=== PATIENT | male | born 1945 | race American Indian/Alaskan Native ===

== ENCOUNTER 2021-08-13 20:32 | Observation (INO) | payer MEDICARE, OTHER ==
--- NOTE | 2021-08-13 21:16 | Emergency Department Report ---
ED General Adult HPI - General Chief complaint: Weakness Stated complaint: GENERAL ILLNESS Time Seen by Provider: 08/13/21 21:06 Source: patient, EMS Mode of arrival: Stretcher Limitations: No Limitations - History of Present Illness Initial comments: Patient is 75 years old male with history of end-stage renal disease on hemodialysis last dialysis was yesterday according to the EMS report. Patient also history of diabetes and CVA. Patient brought to the emergency room via EMS from home after his son called and stated that he feel that he is motor function is not perfect and he stated that he looks weak. EMS stated that patient blood pressure was 90/42 but his son stated that that his usual blood pressure. Upon arrival to the ER patient is awake, alert and oriented x3 in no acute distress. Patient denied any complaint. Patient specifically denied any headache, chest pain, shortness of breath, abdominal pain, nausea or vomiting. No focal weakness numbness or tingling sensation. Stroke scale is 0. - Related Data Allergies Allergy/AdvReac Type Severity Reaction Status Date / Time No Known Allergies Allergy Verified 08/14/21 00:46 ED Review of Systems ROS: Stated complaint: GENERAL ILLNESS Other details as noted in HPI Comment: All other systems reviewed and negative Constitutional: denies: chills, fever Respiratory: denies: cough, shortness of breath, SOB with exertion Cardiovascular: denies: chest pain, palpitations Gastrointestinal: denies: abdominal pain, nausea, vomiting, diarrhea, constipation, hematemesis, melena Musculoskeletal: denies: back pain Neurological: weakness. denies: headache, numbness, paresthesias, confusion, abnormal gait ED Past Medical Hx - Past Medical History Hx CVA: Yes Hx Diabetes: Yes Hx Renal Disease: Yes (HD T, Th, Sat) Hx of Cancer: Yes (prostate, colon) - Surgical History Additional Surgical History: L foot ED Physical Exam - General Limitations: No Limitations General appearance: alert, in no apparent distress - Head Head exam: Present: atraumatic, normocephalic, normal inspection - Eye Eye exam: Present: normal appearance, PERRL - ENT ENT exam: Present: normal exam, normal orophraynx, mucous membranes moist - Neck Neck exam: Present: normal inspection, full ROM. Absent: tenderness, m eningismus, lymphadenopathy, thyromegaly - Respiratory Respiratory exam: Present: normal lung sounds bilaterally - Cardiovascular Cardiovascular Exam: Present: regular rate, normal rhythm, normal heart sounds - GI/Abdominal GI/Abdominal exam: Present: soft, normal bowel sounds. Absent: distended, tenderness, guarding, rebound, rigid, organomegaly, mass, bruit, pulsatile mass, hernia - Extremities Exam Extremities exam: Present: full ROM, pedal edema. Absent: calf tenderness - Back Exam Back exam: Present: normal inspection, full ROM. Absent: CVA tenderness (R), CVA tenderness (L) - Neurological Exam Neurological exam: Present: alert, oriented X3, CN II-XII intact - Psychiatric Psychiatric exam: Present: normal mood - Skin Skin exam: Present: warm, intact, normal color ED Course Vital Signs 08/13/21 08/13/21 08/14/21 21:11 23:00 00:56 Temperature 99.1 F 99.1 F Pulse Rate 99 H 102 H Respiratory 20 20 Rate Blood Pressure 118/80 Blood Pressure 114/45 [Left] O2 Sat by Pulse 100 99 97 Oximetry 08/14/21 08/14/21 08/14/21 01:00 02:01 02:30 Temperature 98.8 F Pulse Rate 106 H Respiratory Rate Blood Pressure Blood Pressure 121/38 [Left] O2 Sat by Pulse 96 100 Oximetry - Consultations Consultation #1: 08/14/21 02:53 I discussed the patient with Dr. Calderon, meat trimmer on-call. He stated that he would follow-up with the patient. ED Medical Decision Making - Lab Data Result diagrams: 08/13/21 21:38 08/13/21 21:38 - EKG Data -: EKG Interpreted by Me EKG shows normal: sinus rhythm - Radiology Data Radiology results: report reviewed - Medical Decision Making Patient is 75 years old male with history of end-stage renal disease on hemodialysis last dialysis was yesterday according to the EMS report. Patient also history of diabetes and CVA. Patient brought to the emergency room via EMS from home after his son called and stated that he feel that he is motor function is not perfect and he stated that he looks weak. EMS stated that patient blood pressure was 90/42 but his son stated that that his usual blood pressure. Upon arrival to the ER patient is awake, alert and oriented x3 in no acute distress. Patient denied any complaint. Patient specifically denied any headache, chest pain, shortness of breath, abdominal pain, nausea or vomiting. No focal weakness numbness or tingling sensation. Stroke scale is 0. Labs reviewed and showed leukocytosis of 16,000. Chest x-ray is negative. CT abdomen and pelvis is unremarkable. CT brain is negative for acute finding. Patient started on Zosyn. Potassium is 5.5. I discussed the patient with Dr. Calderon from [facility]. He advised to admit the patient to [facility] and he will follow up with the patient in the morning. He is able to reviewed the notes from [facility] urgent care today and stated that patient checked in for acute confusion according to the family. I discussed the patient with Dr. Kapadia, he agreed to admit the patient to medical service for further management. Critical Care Time: Yes Critical care time in (mins) excluding proc time.: 30 Critical care attestation.: If time is entered above; I have spent that time in minutes in the direct care of this critically ill patient, excluding procedure time. ED Disposition Clinical Impression: Altered mental status, Leukocytosis, Hyperkalemia, End stage renal disease on dialysis Disposition: 09 ADMITTED INPATIENT Is pt being admited?: Yes Condition: Stable Referrals: YUNIOR GUAN [Other] - 3-5 Days
[2021-08-13 21:52] LABS: Hematocrit 36.6 % (35.5-45.6); Hemoglobin 12.1 gm/dl (11.8-15.2); Mean Corpuscular HGB Conc 33 % (32-34); Mean Corpuscular Volume 108 fl (84-94); Platelet Count 162 K/mm3 (140-440); Red Blood Count 3.38 M/mm3 (3.65-5.03); Red Cell Distribution Width 14.8 % (13.2-15.2)
--- NOTE | 2021-08-13 21:52 | XRay Report ---
CHEST 1 VIEW INDICATION / CLINICAL INFORMATION: SOB. COMPARISON: None available. FINDINGS: SUPPORT DEVICES: None. HEART / MEDIASTINUM: No significant abnormality. LUNGS / PLEURA: No significant pulmonary or pleural abnormality. No pneumothorax. ADDITIONAL FINDINGS: No significant additional findings. IMPRESSION: 1. No acute findings. Signer Name: Destiny Talbert MD Signed: 08/13/2021 9:48 PM Workstation Name: [id number]
[2021-08-13 22:13] LABS: Calcium 9.5 mg/dL (8.4-10.2)
[2021-08-14 00:21] LABS: Anisocytosis 1+; Platelet Estimate Consistent w Auto; Total Cells Counted 100
[2021-08-14] MEDS ORDERED: PIPERACILLIN/TAZOBACTAM 3.375 3.375 GM/50 ML BAG IV ONE (00:45)
[2021-08-14] MEDS ORDERED: LORazepam 2 MG/ML VIAL IV ONE (00:50)
--- NOTE | 2021-08-14 01:01 | Cat Scan Report ---
CT ABDOMEN AND PELVIS WITHOUT CONTRAST INDICATION: ABDOMINAL PAIN. TECHNIQUE: Axial CT images were obtained through the abdomen and pelvis without IV contrast. All CT scans at [facility] are performed using CT dose reduction for ALARA by means of automated exposure control. COMPARISON: None available. FINDINGS: LOWER CHEST: No significant abnormality. LIVER: No significant abnormality. GALLBLADDER: Calcified gallstone BILE DUCTS: No significant abnormality. PANCREAS: No significant abnormality. SPLEEN: No significant abnormality. ADRENALS: No significant abnormality. RIGHT KIDNEY and URETER: Exophytic 7 mm cyst. LEFT KIDNEY and URETER: No significant abnormality. STOMACH and SMALL BOWEL: No significant abnormality. COLON: Right hemicolectomy no significant colonic abnormality APPENDIX: Surgically absent PERITONEUM: No free fluid. No free air. No fluid collection. LYMPH NODES: No significant adenopathy. AORTA and ARTERIES: No significant abnormality. IVC and VEINS: No significant abnormality. URINARY BLADDER: No significant abnormality. REPRODUCTIVE ORGANS: No significant abnormality. ADDITIONAL FINDINGS: None. SKELETAL SYSTEM: Moderate left and severe right hip arthropathy IMPRESSION: 1. Cholelithiasis without CT evidence for cholecystitis. 2. Partial right hemicolectomy Signer Name: Wesley Oh MD Signed: 08/14/2021 12:56 AM Workstation Name: [id number]
[2021-08-14] MEDS ORDERED: SODIUM CHLORIDE 0.9% 500 ML 500 ML IV ONE (02:52)
--- NOTE | 2021-08-14 03:10 | Cat Scan Report ---
CT HEAD WITHOUT CONTRAST INDICATION / CLINICAL INFORMATION: AMS. TECHNIQUE: All CT scans at this location are performed using CT dose reduction for ALARA by means of automated e xposure control. COMPARISON: None available. FINDINGS: HEMORRHAGE: None. EXTRA-AXIAL SPACES: Normal in size and morphology for the patient's age. VENTRICULAR SYSTEM: Normal in size and morphology for the patient's age. CEREBRAL PARENCHYMA: Mild cerebral atrophy and moderate periventricular and deep white matter microan giopathy No significant abnormality. No acute territorial infarct. MIDLINE SHIFT OR HERNIATION: None. CEREBELLUM / BRAINSTEM: No significant abnormality. ORBITS: Normal as visualized. SOFT TISSUES of HEAD: No significant abnormality. CALVARIUM: No significant abnormality. PARANASAL SINUSES / MASTOID AIR CELLS: Normal as visualized. ADDITIONAL FINDINGS: None. IMPRESSION: 1. No acute intracranial abnormality. 2. Cerebral atrophy and moderate microangiopathy Signer Name: Wesley Oh MD Signed: 08/14/2021 3:05 AM Workstation Name: [id number]
[2021-08-14] MEDS ORDERED: ACETAMINOPHEN 325 MG TAB PO PRN (04:28)
[2021-08-14] MEDS ORDERED: ONDANSETRON 4 MG/2 ML INJ IV PRN (04:28)
[2021-08-14] MEDS ORDERED: ALBUTEROL 2.5 MG/3 ML NEBU IH PRN (04:28)
[2021-08-14] MEDS ORDERED: oxyCODONE /ACETAMINOPHEN 5-325MG TAB PO PRN (04:28)
[2021-08-14] MEDS ORDERED: SODIUM CHLORIDE 0.9% 100 ML IV PRN (04:28)
[2021-08-14] MEDS ORDERED: DEXTROSE 50% IN WATER (25GM) 50 ML SYRINGE IV PRN (04:30)
--- NOTE | 2021-08-14 04:36 | History and Physical Report ---
History of Present Illness Date of examination: 08/14/21 Date of admission: 08/14/21 Chief complaint: Weakness History of present illness: 75 years old male with history of CVA, diabetes, end-stage renal disease on hemodialysis last dialysis was yesterday was brought to the emergency room via EMS from home after his son called and stated that he feel that he is motor function is not perfect and he stated that he looks weak. patient blood pressure was 90/42 but his son stated that that his usual blood pressure. Upon arrival to the ER patient is awake, alert and oriented x3 in no acute distress. Patient denied any complaint. Patient specifically denied any headache, chest pain, shortness of breath, abdominal pain, nausea or vomiting. No focal weakness numbness or tingling sensation. Stroke scale is 0. In the emergency room patient WBC 16.4, BUN 52 creatinine 11.0 potassium 5.5 nephrology is consulted for hemodialysis. Chest x-ray is negative. CT abdomen and pelvis is unremarkable. CT brain is negative for acute finding. Patient started on Zosyn. Med rec is not available Past History Past Medical History: diabetes, ESRD, hypertension, stroke Medications and Allergies Allergies Allergy/AdvReac Type Severity Reaction Status Date / Time No Known Allergies Allergy Verified 08/14/21 00:46 Review of Systems All systems: negative Constitutional: fatigue, weakness Exam - Constitutional Vitals: Temp Pulse Resp BP Pulse Ox 98.8 F 106 H 20 121/38 100 08/14/21 02:30 08/14/21 02:30 08/13/21 23:00 08/14/21 02:30 08/14/21 02:01 General appearance: Present: no acute distress, well-nourished - EENT Eyes: Present: PERRL ENT: hearing intact, clear oral mucosa - Neck Neck: Present: supple, normal ROM - Respiratory Respiratory effort: normal Respiratory: bilateral: diminished - Cardiovascular Heart Sounds: Present: S1 & S2. Absent: rub, click - Extremities Extremities: pulses symmetrical Extremity abnormal: edema, black Peripheral Pulses: within normal limits - Abdominal General gastrointestinal: Present: soft, non-tender, non-distended, normal bowel sounds Male genitourinary: Present: normal - Integumentary Integumentary: Present: clear, warm, dry - Musculoskeletal Musculoskeletal: gait normal, strength equal bilaterally - Psychiatric Psychiatric: appropriate mood/affect, intact judgment & insight - Neurologic Neurologic: CNII-XII intact, moves all extremities Results - Labs CBC & Chem 7: 08/13/21 21:38 08/13/21 21:38 Labs: Laboratory Last Values WBC 16.4 K/mm3 (4.5-11.0) H 08/13/21 21:38 RBC 3.38 M/mm3 (3.65-5.03) L 08/13/21 21:38 Hgb 12.1 gm/dl (11.8-15.2) 08/13/21 21:38 Hct 36.6 % (35.5-45.6) 08/13/21 21:38 MCV 108 fl (84-94) H 08/13/21 21:38 MCH 36 pg (28-32) H 08/13/21 21:38 MCHC 33 % (32-34) 08/13/21 21:38 RDW 14.8 % (13.2-15.2) 08/13/21 21:38 Plt Count 162 K/mm3 (140-440) 08/13/21 21:38 Add Manual Diff Complete 08/13/21 21:38 Total Counted 100 08/13/21 21:38 Seg Neutrophils % Peripatologist 08/13/21 21:38 Seg Neuts % (Manual) 95.0 % (40.0-70.0) H 08/13/21 21:38 Lymphocytes % (Manual) 4.0 % (13.4-35.0) L 08/13/21 21:38 Monocytes % (Manual) 1.0 % (0.0-7.3) 08/13/21 21:38 Nucleated RBC % Not Reportable 08/13/21 21:38 Seg Neutrophils # Man 15.6 K/mm3 (1.8-7.7) H 08/13/21 21:38 Band Neutrophils # 0.0 K/mm3 08/13/21 21:38 Lymphocytes # (Manual) 0.7 K/mm3 (1.2-5.4) L 08/13/21 21:38 Abs React Lymphs (Man) 0.0 K/mm3 08/13/21 21:38 Monocytes # (Manual) 0.2 K/mm3 (0.0-0.8) 08/13/21 21:38 Eosinophils # (Manual) 0.0 K/mm3 (0.0-0.4) 08/13/21 21:38 Basophils # (Manual) 0.0 K/mm3 (0.0-0.1) 08/13/21 21:38 Metamyelocytes # 0.0 K/mm3 08/13/21 21:38 Myelocytes # 0.0 K/mm3 08/13/21 21:38 Promyelocytes # 0.0 K/mm3 08/13/21 21:38 Blast Cells # 0.0 K/mm3 08/13/21 21:38 WBC Morphology Not Reportable 08/13/21 21:38 Hypersegmented Neuts Not Reportable 08/13/21 21:38 Hyposegmented Neuts Not Reportable 08/13/21 21:38 Hypogranular Neuts Not Reportable 08/13/21 21:38 Smudge Cells Not Reportable 08/13/21 21:38 Toxic Granulation Not Reportable 08/13/21 21:38 Toxic Vacuolation Not Reportable 08/13/21 21:38 Dohle Bodies Not Reportable 08/13/21 21:38 Pelger-Huet Anomaly Not Reportable 08/13/21 21:38 David Rods Not Reportable 08/13/21 21:38 Platelet Estimate Consistent w auto 08/13/21 21:38 Clumped Platelets Not Reportable 08/13/21 21:38 Plt Clumps, EDTA Not Reportable 08/13/21 21:38 Large Platelets Not Reportable 08/13/21 21:38 Giant Platelets Not Reportable 08/13/21 21:38 Platelet Satelliting Not Reportable 08/13/21 21:38 Plt Morphology Comment Not Reportable 08/13/21 21:38 RBC Morphology Not Reportable 08/13/21 21:38 Dimorphic RBCs Not Reportable 08/13/21 21:38 Polychromasia Not Reportable 08/13/21 21:38 Hypochromasia Not Reportable 08/13/21 21:38 Poikilocytosis Not Reportable 08/13/21 21:38 Anisocytosis 1+ 08/13/21 21:38 Microcytosis Not Reportable 08/13/21 21:38 Macrocytosis Not Reportable 08/13/21 21:38 Spherocytes Not Reportable 08/13/21 21:38 Pappenheimer Bodies Not Reportable 08/13/21 21:38 Sickle Cells Not Reportable 08/13/21 21:38 Target Cells Not Reportable 08/13/21 21:38 Tear Drop Cells Not Reportable 08/13/21 21:38 Ovalocytes Not Reportable 08/13/21 21:38 Helmet Cells Not Reportable 08/13/21 21:38 Nagel-[place] Bodies Not Reportable 08/13/21 21:38 Lutz Rings Not Reportable 08/13/21 21:38 Priscilla Cells Not Reportable 08/13/21 21:38 Bite Cells Not Reportable 08/13/21 21:38 Crenated Cell Not Reportable 08/13/21 21:38 Elliptocytes Not Reportable 08/13/21 21:38 Acanthocytes (Spur) Not Reportable 08/13/21 21:38 Rouleaux Not Reportable 08/13/21 21:38 Hemoglobin C Crystals Not Reportable 08/13/21 21:38 Schistocytes Not Reportable 08/13/21 21:38 Malaria parasites Not Reportable 08/13/21 21:38 Aleksander Bodies Not Reportable 08/13/21 21:38 Hem Pathologist Commnt No 08/13/21 21:38 Sodium 137 mmol/L (137-145) 08/13/21 21:38 Potassium 5.5 mmol/L (3.6-5.0) H 08/13/21 21:38 Chloride 92.8 mmol/L (98-107) L 08/13/21 21:38 Carbon Dioxide 26 mmol/L (22-30) 08/13/21 21:38 Anion Gap 24 mmol/L 08/13/21 21:38 BUN 52 mg/dL (9-20) H 08/13/21 21:38 Creatinine 11.0 mg/dL (0.8-1.3) H 08/13/21 21:38 Estimated GFR 5 ml/min 08/13/21 21:38 BUN/Creatinine Ratio 5 % 08/13/21 21:38 Glucose 110 mg/dL (75-100) H 08/13/21 21:38 Lactic Acid 1.40 mmol/L (0.7-2.0) 08/13/21 22:47 Calcium 9.5 mg/dL (8.4-10.2) 08/13/21 21:38 Total Creatine Kinase 181 units/L (55-170) H 08/13/21 21:38 - Imaging and Cardiology Chest x-ray: report reviewed CT scan - abdomen: report reviewed CT Scan - head: report reviewed Assessment and Plan VTE prophylaxis?: Chemical Plan of care discussed with patient/family: Yes - Patient Problems (1) Acute encephalopathy Current Visit: Yes Status: Acute Plan to address problem: Admit to the medical floor. Encephalitis multifactorial most likely from the end-stage renal disease and infectious process. We will put the patient on Zosyn 4.5 g IV every 8 hours. We consulted nephrology for hemodialysis in the morning. We will monitor the patient closely (2) End stage renal disease on dialysis Current Visit: Yes Status: Acute Plan to address problem: Avoid nephrotoxic drug. We consulted nephrology for hemodialysis in the morning. Renally dose medication. Recheck BMP in the morning (3) Diabetes Current Visit: Yes Status: Acute Plan to address problem: 1800 kcal ADA diet. Humalog sliding scale Accu-Chek before meals and at bedtime with moderate dose coverage. Diabetic education (4) Hyperkalemia Current Visit: Yes Status: Acute Plan to address problem: K skillet 30 g p.o. every 4 hours x2 dose. We consulted nephrology for dialysis. Recheck BMP in the morning (5) Leukocytosis Current Visit: Yes Status: Acute Plan to address problem: Zosyn 4.5 g IV every 8 hours. We do the blood cultures sputum culture. Recheck CBC in the morning (6) DVT prophylaxis Current Visit: Yes Status: Acute Plan to address problem: Heparin 5000 units subcu every 8 hours for DVT prophylaxis. Pepcid 20 mg p.o. twice daily for GI prophylaxis. Patient is a full code
[2021-08-14] MEDS ORDERED: PIPERACIL/TAZOBACTA 4.5/NS 100 4.5 GM/100 ML VIAL IV SCH (05:00)
[2021-08-14] MEDS: PIPERACIL-TAZO 2.25 GM/50 ML 2.25 GM/50 ML BAG IV SCH ×3 (05:50→22:30)
[2021-08-14] MEDS: HYDROmorphone 1 MG/1 ML INJ IV PRN ×3 (07:40→23:42)
[2021-08-14] MEDS: INSULIN LISPRO 100 UNIT/ML SUB-Q SCH ×4 (08:45→22:30)
[2021-08-14 08:47] LABS: Hematocrit 34.6 % (35.5-45.6); Hemoglobin 11.5 gm/dl (11.8-15.2); Mean Corpuscular HGB Conc 33 % (32-34); Mean Corpuscular Volume 108 fl (84-94); Platelet Count 126 K/mm3 (140-440); Red Cell Distribution Width 14.7 % (13.2-15.2)
[2021-08-14 09:03] LABS: Calcium 8.9 mg/dL (8.4-10.2)
[2021-08-14] MEDS ORDERED: FAMOTIDINE 20 MG TAB PO SCH (10:00)
[2021-08-14] MEDS ORDERED: DEXTROSE 50% IN WATER (25GM) 50 ML VIAL IV STA (10:20)
--- NOTE | 2021-08-14 10:22 | Event Note ---
Date: 08/14/21 Patient admitted this morning for altered mental status, generalized weakness. I have seen and examined him. Hyperkalemia with Potassium 5.6. Give Kayealate, Insulin. Nephrology consulted.
[2021-08-14] MEDS ORDERED: SODIUM POLYSTYRENE 15 GM/60 ML ORAL LIQD PO SCH (10:30)
[2021-08-14] MEDS ORDERED: DEXTROSE 50% IN WATER (25GM) 50 ML SYRINGE IV SCH (10:30)
[2021-08-14] MEDS ORDERED: INSULIN REGULAR, HUMAN 100 UNITS/1 ML IV SCH (10:30)
[2021-08-14] MEDS: FAMOTIDINE 10 MG TAB PO SCH ×2 (10:43→22:30)
--- NOTE | 2021-08-14 14:14 | Consultation ---
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 CT scan of the head did not show any acute abnormalities but does sh ow chronic atrophy. Patient also underwent CT of the abdomen which showed cholelithiasis without evidence of acute cholecystitis. Nephrology was consulted for further management of hyperkalemia and end-stage renal disease management. As mentioned his last hemodialysis treatment was Saturday and per patient he had no issues during his last dialysis treatment. He denies having missed any hemodialysis treatments presently. Past History Past Medical History: diabetes, ESRD, hypertension, stroke Medications and Allergies Allergies Allergy/AdvReac Type Severity Reaction Status Date / Time No Known Allergies Allergy Verified 08/14/21 00:46 Home Medications Medication Instructions Recorded Confirmed Last Taken Type Apixaban [Eliquis] 5 mg PO Q12H 08/14/21 08/14/21 Unknown History Atorvastatin Calcium [Lipitor] 80 mg PO QHS 08/14/21 08/14/21 Unknown History Calcium Acetate [Phoslyra] 667 mg PO PRN PRN 08/14/21 08/14/21 Unknown History Calcium Acetate [Phoslyra] 667 mg PO TIDAC 08/14/21 08/14/21 Unknown History Cinacalcet HCl [Sensipar] 60 mg PO 3XW 08/14/21 08/14/21 Unknown History Midodrine [Proamatine] 5 mg PO TID 08/14/21 08/14/21 Unknown History Vit B Comp No.3/Folic/C/Biotin 1 each PO QDAY 08/14/21 08/14/21 Unknown History [Kisha-Tyrese Rx Tablet] Active Meds: Active Medications Acetaminophen (Acetaminophen 325 Mg Tab) 650 mg PO Q4H PRN PRN Reason: Pain MILD(1-3)/Fever >100.5/TEAGUE Albuterol (Albuterol 2.5 Mg/3 Ml Nebu) 2.5 mg IH Q4HRT PRN PRN Reason: Shortness Of Breath Albuterol/Ipratropium (Ipratropium/Albuterol Sulfate 3 Ml Ampul.Neb) 1 ampul IH Q6HRT [facility] Dextrose (Dextrose 50% In Water (25gm) 50 Ml Syringe) 50 ml IV Q30MIN PRN; Protocol PRN Reason: Hypoglycemia Famotidine (Famotidine 10 Mg Tab) 10 mg PO BID [facility] Last Admin: 08/14/21 10:43 Dose: Not Given Documented by: Heparin Sodium (Porcine) (Heparin 5,000 Unit/1 Ml Vial) 5,000 unit SUB-Q Q8HR [facility] Hydromorphone HCl (Hydromorphone 1 Mg/1 Ml Inj) 0.5 mg IV Q3H PRN PRN Reason: Pain , Severe (7-10) Sodium Chloride (Nacl 0.9%) 100 mls @ 999 mls/hr IV ANA MARÍA PRN PRN Reason: Hypotension Piperacillin Sod/Tazobactam Sod (Zosyn/Ns 2.25 Gm/50ml) 2.25 gm in 50 mls @ 100 mls/hr IV Q8H [facility]; Protocol Last Admin: 08/14/21 12:52 Dose: 100 mls/hr Documented by: Insulin Human Lispro (Insulin Lispro 100 Unit/Ml) 0 unit SUB-Q ACHS [facility]; Protocol Last Admin: 08/14/21 12:04 Dose: Not Given Documented by: Ondansetron HCl (Ondansetron 4 Mg/2 Ml Inj) 4 mg IV Q8H PRN PRN Reason: Nausea And Vomiting Oxycodone/Acetaminophen (Oxycodone /Acetaminophen 5-325mg Tab) 1 tab PO Q6H PRN PRN Reason: Pain, Moderate (4-6) Sodium Chloride (Sodium Chloride 0.9% 10 Ml Flush Syringe) 10 ml IV BID [facility] Last Admin: 08/14/21 10:44 Dose: 10 ml Documented by: Sodium Chloride (Sodium Chloride 0.9% 10 Ml Flush Syringe) 10 ml IV PRN PRN PRN Reason: LINE FLUSH Sodium Polystyrene Sulfonate (Sodium Polystyrene 15 Gm/60 Ml Oral Liqd) 30 gm PO ONCE@1030 JED Stop: 08/14/21 14:30 Last Admin: 08/14/21 11:19 Dose: 30 gm Documented by: Review of Systems All systems: negative Constitutional: fatigue, weakness Exam - Vital Signs Vital signs: Vital Signs Temp Pulse Resp BP Pulse Ox 99.1 F 99 H 20 118/80 98 08/13/21 21:11 08/13/21 21:11 08/13/21 21:11 08/13/21 21:11 08/13/21 21:11 - General Appearance General appearance: appears stated age, chronically ill EENT: ATNC Neck: Present: neck supple Respiratory: Clear to Ascultation Heart: regular Gastrointestinal: Present: normal Integumentary: rash, hyperkeratosis Neurologic: no focal deficit Musculoskeletal: Present: deferred Psychiatric: cooperative Results - Lab Results 08/14/21 08:28 08/14/21 08:28 Most recent lab results Calcium 8.9 mg/dL (8.4-10.2) 08/14/21 08:28 Assessment and Plan - Patient Problems (1) End stage renal disease on dialysis Current Visit: Yes Status: Chronic Plan to address problem: Orders have been placed to maintain patient on an inpatient Saturday//Saturday hemodialysis schedule. Patient has already received a dose of Kayexalate with positive bowel movement since administration. Anticipate potassium levels will improve and be stable for today. Chest x-ray was clear and otherwise there is no other acute indications for hemodialysis today. Will be dialyzed tomorrow. (2) Acute encephalopathy Current Visit: Yes Status: Acute Plan to address problem: CT of the head did not show any acute abnormalities and it seems that since admission his mentation has improved. We will continue to monitor closely (3) Hyperkalemia Current Visit: Yes Status: Acute Plan to address problem: We will treat with hemodialysis tomorrow. Has already received dose of Kayexalate along with insulin by primary team. (4) Secondary hyperparathyroidism (of renal origin) Current Visit: Yes Status: Chronic Plan to address problem: Would recommend restarting home phosphorus binder regimen. (5) Diabetes Current Visit: Yes Status: Chronic Plan to address problem: Diabetes management per primary attending.
[2021-08-14] MEDS: HEPARIN 5,000 UNIT/1 ML VIAL SUB-Q SCH ×2 (14:15→23:30)
[2021-08-14] MEDS: IPRATROPIUM/ALBUTEROL SULFATE 3 ML AMPUL.NEB IH SCH ×2 (19:30→22:04)
[2021-08-15] MEDS: IPRATROPIUM/ALBUTEROL SULFATE 3 ML AMPUL.NEB IH SCH ×4 (02:39→22:07)
[2021-08-15] MEDS: PIPERACIL-TAZO 2.25 GM/50 ML 2.25 GM/50 ML BAG IV SCH (06:00)
[2021-08-15] MEDS: HEPARIN 5,000 UNIT/1 ML VIAL SUB-Q SCH ×3 (06:26→14:00)
[2021-08-15 06:30] LABS: Basophils % (Auto) 0.4 % (0.0-1.8); Eosinophils # (Auto) 0.1 K/mm3 (0.0-0.4); Eosinophils % (Auto) 1.5 % (0.0-4.3); Hematocrit 32.1 % (35.5-45.6); Hemoglobin 10.7 gm/dl (11.8-15.2); Lymphocytes # (Auto) 0.9 K/mm3 (1.2-5.4); Lymphocytes % (Auto) 12.2 % (13.4-35.0); Mean Corpuscular HGB Conc 33 % (32-34); Mean Corpuscular Volume 107 fl (84-94); Monocytes # (Auto) 0.6 K/mm3 (0.0-0.8); Monocytes % (Auto) 7.7 % (0.0-7.3); Platelet Count 165 K/mm3 (140-440); Red Blood Count 2.99 M/mm3 (3.65-5.03); Red Cell Distribution Width 14.4 % (13.2-15.2)
[2021-08-15] MEDS: INSULIN LISPRO 100 UNIT/ML SUB-Q SCH ×3 (07:30→16:30)
[2021-08-15] MEDS ORDERED: EPOETIN ALFA-EPBX 10,000 UNIT/1 ML VIAL IV PRN (08:00)
[2021-08-15] MEDS ORDERED: SODIUM CHLORIDE 0.9% 100 ML IV PRN (08:00)
--- NOTE | 2021-08-15 10:14 | Progress Note ---
History Interval history: No new issues overnight. Hospitalist Physical - Constitutional Vitals: Temp Pulse Resp BP Pulse Ox 98.2 F 88 18 100/47 94 08/15/21 07:18 08/15/21 06:59 08/15/21 07:18 08/15/21 07:18 08/15/21 09:30 General appearance: Present: no acute distress, well-nourished - EENT Eyes: Present: PERRL, EOM intact ENT: hearing intact, clear oral mucosa, dentition normal - Neck Neck: Present: supple, normal ROM - Respiratory Respiratory effort: normal Respiratory: bilateral: CTA - Cardiovascular Rhythm: regular Heart Sounds: Present: S1 & S2. Absent: gallop, rub - Extremities Extremities: no ischemia, No edema, Full ROM - Abdominal General gastrointestinal: soft, non-tender, non-distended, normal bowel sounds - Integumentary Integumentary: Present: clear, warm, dry - Neurologic Neurologic: CNII-XII intact, moves all extremities Results - Labs CBC & Chem 7: 08/15/21 05:05 08/15/21 05:05 Labs: Laboratory Last Values WBC 7.3 K/mm3 (4.5-11.0) 08/15/21 05:05 RBC 2.99 M/mm3 (3.65-5.03) L 08/15/21 05:05 Hgb 10.7 gm/dl (11.8-15.2) L 08/15/21 05:05 Hct 32.1 % (35.5-45.6) L 08/15/21 05:05 MCV 107 fl (84-94) H 08/15/21 05:05 MCH 36 pg (28-32) H 08/15/21 05:05 MCHC 33 % (32-34) 08/15/21 05:05 RDW 14.4 % (13.2-15.2) 08/15/21 05:05 Plt Count 165 K/mm3 (140-440) 08/15/21 05:05 Lymph % (Auto) 12.2 % (13.4-35.0) L 08/15/21 05:05 [place] % (Auto) 7.7 % (0.0-7.3) H 08/15/21 05:05 Eos % (Auto) 1.5 % (0.0-4.3) 08/15/21 05:05 Baso % (Auto) 0.4 % (0.0-1.8) 08/15/21 05:05 Lymph # (Auto) 0.9 K/mm3 (1.2-5.4) L 08/15/21 05:05 [place] # (Auto) 0.6 K/mm3 (0.0-0.8) 08/15/21 05:05 Eos # (Auto) 0.1 K/mm3 (0.0-0.4) 08/15/21 05:05 Baso # (Auto) 0.0 K/mm3 (0.0-0.1) 08/15/21 05:05 Add Manual Diff Complete 08/13/21 21:38 Total Counted 100 08/13/21 21:38 Seg Neutrophils % 78.2 % (40.0-70.0) H 08/15/21 05:05 Seg Neuts % (Manual) 95.0 % (40.0-70.0) H 08/13/21 21:38 Lymphocytes % (Manual) 4.0 % (13.4-35.0) L 08/13/21 21:38 Monocytes % (Manual) 1.0 % (0.0-7.3) 08/13/21 21:38 Nucleated RBC % Not Reportable 08/13/21 21:38 Seg Neutrophils # 5.7 K/mm3 (1.8-7.7) 08/15/21 05:05 Seg Neutrophils # Man 15.6 K/mm3 (1.8-7.7) H 08/13/21 21:38 Band Neutrophils # 0.0 K/mm3 08/13/21 21:38 Lymphocytes # (Manual) 0.7 K/mm3 (1.2-5.4) L 08/13/21 21:38 Abs React Lymphs (Man) 0.0 K/mm3 08/13/21 21:38 Monocytes # (Manual) 0.2 K/mm3 (0.0-0.8) 08/13/21 21:38 Eosinophils # (Manual) 0.0 K/mm3 (0.0-0.4) 08/13/21 21:38 Basophils # (Manual) 0.0 K/mm3 (0.0-0.1) 08/13/21 21:38 Metamyelocytes # 0.0 K/mm3 08/13/21 21:38 Myelocytes # 0.0 K/mm3 08/13/21 21:38 Promyelocytes # 0.0 K/mm3 08/13/21 21:38 Blast Cells # 0.0 K/mm3 08/13/21 21:38 WBC Morphology Not Reportable 08/13/21 21:38 Hypersegmented Neuts Not Reportable 08/13/21 21:38 Hyposegmented Neuts Not Reportable 08/13/21 21:38 Hypogranular Neuts Not Reportable 08/13/21 21:38 Smudge Cells Not Reportable 08/13/21 21:38 Toxic Granulation Not Reportable 08/13/21 21:38 Toxic Vacuolation Not Reportable 08/13/21 21:38 Dohle Bodies Not Reportable 08/13/21 21:38 Pelger-Huet Anomaly Not Reportable 08/13/21 21:38 David Rods Not Reportable 08/13/21 21:38 Platelet Estimate Consistent w auto 08/13/21 21:38 Clumped Platelets Not Reportable 08/13/21 21:38 Plt Clumps, EDTA Not Reportable 08/13/21 21:38 Large Platelets Not Reportable 08/13/21 21:38 Giant Platelets Not Reportable 08/13/21 21:38 Platelet Satelliting Not Reportable 08/13/21 21:38 Plt Morphology Comment Not Reportable 08/13/21 21:38 RBC Morphology Not Reportable 08/13/21 21:38 Dimorphic RBCs Not Reportable 08/13/21 21:38 Polychromasia Not Reportable 08/13/21 21:38 Hypochromasia Not Reportable 08/13/21 21:38 Poikilocytosis Not Reportable 08/13/21 21:38 Anisocytosis 1+ 08/13/21 21:38 Microcytosis Not Reportable 08/13/21 21:38 Macrocytosis Not Reportable 08/13/21 21:38 Spherocytes Not Reportable 08/13/21 21:38 Pappenheimer Bodies Not Reportable 08/13/21 21:38 Sickle Cells Not Reportable 08/13/21 21:38 Target Cells Not Reportable 08/13/21 21:38 Tear Drop Cells Not Reportable 08/13/21 21:38 Ovalocytes Not Reportable 08/13/21 21:38 Helmet Cells Not Reportable 08/13/21 21:38 Nagel-[place] Bodies Not Reportable 08/13/21 21:38 Jackson Rings Not Reportable 08/13/21 21:38 Priscilla Cells Not Reportable 08/13/21 21:38 Bite Cells Not Reportable 08/13/21 21:38 Crenated Cell Not Reportable 08/13/21 21:38 Elliptocytes Not Reportable 08/13/21 21:38 Acanthocytes (Spur) Not Reportable 08/13/21 21:38 Rouleaux Not Reportable 08/13/21 21:38 Hemoglobin C Crystals Not Reportable 08/13/21 21:38 Schistocytes Not Reportable 08/13/21 21:38 Malaria parasites Not Reportable 08/13/21 21:38 Aleksander Bodies Not Reportable 08/13/21 21:38 Hem Pathologist Commnt No 08/13/21 21:38 Sodium 137 mmol/L (137-145) 08/15/21 05:05 Potassium 5.1 mmol/L (3.6-5.0) H 08/15/21 05:05 Chloride 94.5 mmol/L (98-107) L 08/15/21 05:05 Carbon Dioxide 23 mmol/L (22-30) 08/15/21 05:05 Anion Gap 25 mmol/L 08/15/21 05:05 BUN 75 mg/dL (9-20) H 08/15/21 05:05 Creatinine 15.3 mg/dL (0.8-1.3) H 08/15/21 05:05 Estimated GFR 4 ml/min 08/15/21 05:05 BUN/Creatinine Ratio 5 % 08/15/21 05:05 Glucose 81 mg/dL (75-100) 08/15/21 05:05 POC Glucose 60 mg/dL (70-105) L 08/15/21 07:23 Lactic Acid 1.40 mmol/L (0.7-2.0) 08/13/21 22:47 Calcium 9.0 mg/dL (8.4-10.2) 08/15/21 05:05 Total Creatine Kinase 181 units/L (55-170) H 08/13/21 21:38 Arellano/IV: Voiding Method Urinal Active Medications - Current Medications Current Medications: Generic Name Dose Route Start Last Admin Trade Name Freq PRN Reason Stop Dose Admin Acetaminophen 650 mg 08/14/21 04:28 Acetaminophen 325 Mg Tab PO Q4H PRN Pain MILD(1-3)/Fever >100.5/TEAGUE Albuterol 2.5 mg 08/14/21 04:28 Albuterol 2.5 Mg/3 Ml Nebu IH Q4HRT PRN Shortness Of Breath Albuterol/Ipratropium 1 ampul 08/14/21 08:00 08/15/21 09:30 Ipratropium/Albuterol Sulfate 3 Ml Ampul.Neb IH Not Given Q6HRT JED Dextrose 50 ml 08/14/21 04:30 Dextrose 50% In Water (25gm) 50 Ml Syringe IV Q30MIN PRN Hypoglycemia Protocol Famotidine 10 mg 08/14/21 10:00 08/14/21 22:30 Famotidine 10 Mg Tab PO 10 mg BID JED Administration Heparin Sodium (Porcine) 5,000 unit 08/14/21 06:00 08/15/21 06:28 Heparin 5,000 Unit/1 Ml Vial SUB-Q 5,000 unit Q8HR JED Administration Hydromorphone HCl 0.5 mg 08/14/21 04:28 08/14/21 23:42 Hydromorphone 1 Mg/1 Ml Inj IV 0.5 mg Q3H PRN Administration Pain , Severe (7-10) Piperacillin Sod/Tazobactam Sod 2.25 gm in 50 mls @ 100 mls/hr 08/14/21 05:00 08/15/21 06:00 Zosyn/Ns 2.25 Gm/50ml IV 100 mls/hr Q8H JED Administration Protocol Sodium Chloride 100 mls @ 999 mls/hr 08/15/21 08:00 Nacl 0.9% IV ANA MARÍA PRN Hypotension Insulin Human Lispro 0 unit 08/14/21 07:30 08/14/21 22:30 Insulin Lispro 100 Unit/Ml SUB-Q Not Given [facility] Protocol Ondansetron HCl 4 mg 08/14/21 04:28 Ondansetron 4 Mg/2 Ml Inj IV Q8H PRN Nausea And Vomiting Oxycodone/Acetaminophen 1 tab 08/14/21 04:28 Oxycodone /Acetaminophen 5-325mg Tab PO Q6H PRN Pain, Moderate (4-6) Pneumococcal Polyvalent Vaccine 0.5 ml 08/16/21 12:00 Pneumococcal 23 Valent 0.5 Ml Vial IM 08/16/21 12:01 .ONCE ONE Sodium Chloride 10 ml 08/14/21 10:00 08/15/21 03:15 Sodium Chloride 0.9% 10 Ml Flush Syringe IV Not Given BID JED Sodium Chloride 10 ml 08/14/21 04:28 Sodium Chloride 0.9% 10 Ml Flush Syringe IV PRN PRN LINE FLUSH Nutrition/Malnutrition Assess - Dietary Evaluation Nutrition/Malnutrition Findings: Nutrition Notes Start: 08/14/21 17:13 Freq: Status: Active Protocol: Document 08/14/21 17:13 MARILIN (Rec: 08/14/21 17:36 MARILIN [id number]) Nutrition Notes Need for Assessment generated from: Education Initial or Follow up Assessment Current Diagnosis CKD (stage V CKD),Diabetes, Stroke Other Pertinent Diagnosis Weakeness, Altered Mental State. Current Diet Renal Diet, and Cardiac/ Consistent Carbohydrate Diet ( since B 08/14). Labs/Tests 08/14: Na 136, K 5.6, Cl 95.3, BUN 58, Cr 12.8, Glu 107.. Pertinent Medications 08/14: Nutritionally unremarkable. Height 5 ft 10 in Weight 96.651 kg [place] Body Weight (kg) 75.45 BMI 30.5 Weight Status Overweight Percent of energy/protein needs met: Either of the prescribed diets provide with 75% or more of energy/protein needs during LOS. Burn Absent Trauma Absent GI Symptoms None Food Allergy No Skin Integrity/Comment Integumentary; clear, warm, dry. Minimum of two criteria No physical signs of malnutrition #1 Nutrition Diagnosis No nutrition diagnosis at this time Comments: Pt does not appear to be a candidate for nutritional education at the time due to ongoing treatment and diagnosis of (transient?) altered mental state. If conditions change favorably , nutritional education will be provided to support behavioral changes towards a healthy lifestyle. Is patient on ventilator? No Is Patient Ambulatory and/or Out of Bed Yes REE-(Seeley-St. Jeor-ambulatory/OOB) [ 2233.088 NUTR.MSJOOB] Kcal/Kg value to use for calculation 22 Approximate Energy Requirements Using 2126 kcal/Kg Calculation Used for Recommendations Kcal/kg Additional Notes Protein: 1.0-1.2 g/Kg/day; 75- 90 g/day; 300-360 Kcal/day ( from IBW). Fluids: 1.0 ml/Kcal/day, or as per MD. Nutrition Intervention Change Diet Order: Recommend to cancel Cardiac/ Consistent Carbohydrate Diet ( Now). Continue Renal Diet. Goal #1 Maintain body weight within +/ -3% of current BWt during LOS. Goal #2 Reach and maintain acceptable chemistry lab values during LOS. Follow-Up By: 08/21/21 Additional Comments Continue monitoring acceptance of foods, % PO intake of meals, hydration, and BM.
--- NOTE | 2021-08-15 10:22 | Discharge Summary ---
Providers - Providers Date of Admission: 08/14/21 06:43 Date of discharge: 08/15/21 Attending physician: LOUISE VINCENT 08/14/21 02:51 Consult to Physician [CONS] Stat Comment: Consulting Provider: DELFINA IRVIN Physician Instructions: Reason For Exam: End-stage renal disease, dialysis 08/14/21 04:30 Consult to Dietitian/Nutrition [CONS] Routine Physician Instructions: Reason For Exam: Reason for Consult: Diet education Hospitalization Reason for admission: AMS Condition: Stable Hospital course: Patient is 75 years old male with history of diabetes mellitus type 2, CVA and end-stage renal disease on hemodialysis last dialysis was the day prior to admission. Patient brought to the emergency room via EMS from home after his son called and stated that the patient was noted to be somnolent and lethargic. Patient had difficulty navigating stairs. However, patient had no focal weakness or lateralizing signs or symptoms. EMS stated that patient blood pressure was 90/42 but his son stated that that his usual blood pressure. Upon arrival to the ER, the patient was noted to be awake, alert and oriented x3 in no acute distress. Patient denied any complaints. Patient specifically denied any headache, chest pain, shortness of breath, abdominal pain, nausea or vomiting. No focal weakness numbness or tingling sensation. Stroke scale is 0. Labs reviewed and showed leukocytosis of 16,000. Chest x-ray was negative. CT abdomen and pelvis was unremarkable. CT brain is negative for acute finding. Patient started on Zosyn empiric. Potassium was 5.5. I ER physician discussed the patient with Dr. Calderon from [facility]. He advised to admit the patient to [facility]. The patient was admitted with diagnosis of metabolic encephalopathy, ESRD, diabetes mellitus type 2, leukocytosis and hyperkalemia. Patient was continued on antibiotics empirically and was noted to have normalization of leukocytosis. Patient had no evidence of sepsis and remained afebrile with no infectious etiology. Blood cultures obtained and will be followed up. However, patient is back to baseline overall and especially with mental status. Therefore, patient will be discharged home and is to follow-up with primary care physician at [facility]. Dedicated discharge time 32 minutes Disposition: 01 HOME / SELF CARE / HOMELESS Final Discharge Diagnosis (Prints w/discharge instructions): metabolic encephalopathy, ESRD, diabetes mellitus type 2, leukocytosis and hyperkalemia Core Measure Documentation - Palliative Care Palliative Care/ Comfort Measures: Not Applicable - Core Measures Any of the following diagnoses?: none Exam - Constitutional Vitals: Temp Pulse Resp BP Pulse Ox 98.2 F 88 18 100/47 94 08/15/21 07:18 08/15/21 06:59 08/15/21 07:18 08/15/21 07:18 08/15/21 09:30 General appearance: Present: no acute distress, well-nourished - EENT Eyes: Present: PERRL ENT: hearing intact, clear oral mucosa - Neck Neck: Present: supple, normal ROM - Respiratory Respiratory effort: normal Respiratory: bilateral: CTA - Cardiovascular Heart Sounds: Present: S1 & S2. Absent: rub, click - Extremities Extremities: pulses symmetrical, No edema Peripheral Pulses: within normal limits - Abdominal General gastrointestinal: Present: soft, non-tender, non-distended, normal bowel sounds Male genitourinary: Present: normal - Integumentary Integumentary: Present: clear, warm, dry - Musculoskeletal Musculoskeletal: gait normal, strength equal bilaterally - Psychiatric Psychiatric: appropriate mood/affect, intact judgment & insight - Neurologic Neurologic: CNII-XII intact, moves all extremities Plan Activity: advance as tolerated Weight Bearing Status: Weight Bear as Tolerated Diet: renal Follow up with: YUNIOR GUAN [Other] - 3-5 Days
--- NOTE | 2021-08-15 10:48 | Electrocardiograph Report ---
[facility] Test Date: 2021-08-15 Test Time: 07:30:20 Pat Name: HARJINDER COFFEY Department: Room: A465 1 Gender: M Housing Specialist: NAYANA : 1945 Requested By: LISETTE DUTTA Order Number: [id number] Reading MD: Harjinder Rosenthal Measurements Intervals [place] Rate: 72 P: 51 CO: 184 QRS: -36 QRSD: 89 T: 25 QT: 388 QTc: 426 Interpretive Statements Sinus rhythm LAD NSTW'S No previous ECG available for comparison Electronically Signed On 08-15-2021 10:47:55 EDT by Harjinder Rosenthal
--- NOTE | 2021-08-15 12:46 | Progress Note ---
Assessment and Plan - Patient Problems (1) End stage renal disease on dialysis Current Visit: Yes Status: Chronic Plan to address problem: Orders have been placed to maintain patient on an inpatient Saturday//Saturday hemodialysis schedule. plan for hemodialysis today. (2) Acute encephalopathy Current Visit: Yes Status: Acute Plan to address problem: CT of the head did not show any acute abnormalities and it seems that since admission his mentation has improved. We will continue to monitor closely improved to baseline. (3) Hyperkalemia Current Visit: Yes Status: Acute Plan to address problem: We will treat with hemodialysis. show improvement after dose of Kayexalate yesterday. counseled on the importance of maintaining a low potassium diet (4) Secondary hyperparathyroidism (of renal origin) Current Visit: Yes Status: Chronic Plan to address problem: Would recommend restarting home phosphorus binder regimen. (5) Diabetes Current Visit: Yes Status: Chronic Plan to address problem: Diabetes management per primary attending. Subjective Date of service: 08/15/21 Interval history: no acute events overnight. Patient is doing much better this morning. Plan for hemodialysis later today. Objective - Vital Signs Vital signs: Vital Signs - 12hr 08/15/21 08/15/21 08/15/21 01:01 01:51 02:01 Temperature Pulse Rate Respiratory Rate Blood Pressure 95/22 95/22 95/22 Blood Pressure [Left] O2 Sat by Pulse 100 98 99 Oximetry 08/15/21 08/15/21 08/15/21 02:11 02:21 02:31 Temperature Pulse Rate Respiratory Rate Blood Pressure 95/22 95/22 95/22 Blood Pressure [Left] O2 Sat by Pulse 98 99 99 Oximetry 08/15/21 08/15/21 08/15/21 02:40 03:44 04:09 Temperature 98.3 F 98.7 F Pulse Rate 78 88 Respiratory 18 20 Rate Blood Pressure 95/22 109/45 Blood Pressure 122/33 [Left] O2 Sat by Pulse 98 94 98 Oximetry 08/15/21 08/15/21 08/15/21 06:59 07:18 09:30 Temperature 98.2 F Pulse Rate 88 Respiratory 18 Rate Blood Pressure 100/47 Blood Pressure [Left] O2 Sat by Pulse 94 Oximetry 08/15/21 11:03 Temperature 98.5 F Pulse Rate 80 Respiratory 22 Rate Blood Pressure 93/45 Blood Pressure [Left] O2 Sat by Pulse 100 Oximetry - General Appearance General appearance: appears stated age EENT: ATNC Neck: no JVD Respiratory: Present: Clear to Ascultation, Normal Exam Cardiology: regular Gastrointestinal: normal Integumentary: no rash Neurologic: no focal deficit Musculoskeletal: deferred Psychiatric: cooperative - Lab 08/15/21 05:05 08/15/21 05:05 Most recent lab results Calcium 9.0 mg/dL (8.4-10.2) 08/15/21 05:05 - Allied health notes Allied health notes reviewed: nursing Medications & Allergies - Medications Allergies/Adverse Reactions: Allergies No Known Allergies Allergy (Verified 08/14/21 00:46) Home Medications: Home Medications Medication Instructions Recorded Confirmed Last Taken Type Apixaban [Eliquis] 5 mg PO Q12H 08/14/21 08/14/21 Unknown History Atorvastatin Calcium [Lipitor] 80 mg PO QHS 08/14/21 08/14/21 Unknown History Calcium Acetate [Phoslyra] 667 mg PO PRN PRN 08/14/21 08/14/21 Unknown History Calcium Acetate [Phoslyra] 667 mg PO TIDAC 08/14/21 08/14/21 Unknown History Cinacalcet HCl [Sensipar] 60 mg PO 3XW 08/14/21 08/14/21 Unknown History Midodrine [Proamatine] 5 mg PO TID 08/14/21 08/14/21 Unknown History Vit B Comp No.3/Folic/C/Biotin 1 each PO QDAY 08/14/21 08/14/21 Unknown History [Kisha-Tyrese Rx Tablet] Epoetin Lanre-Epbx 10,000 Unit 10,000 unit IV ANA MARÍA PRN vial 08/15/21 Unknown Rx [Retacrit] Famotidine [Pepcid] 10 mg PO BID tablet 08/15/21 Unknown Rx Active Medications: Generic Name Dose Route Start Last Admin Trade Name Freq PRN Reason Stop Dose Admin Acetaminophen 650 mg 08/14/21 04:28 Acetaminophen 325 Mg Tab PO Q4H PRN Pain MILD(1-3)/Fever >100.5/TEAGUE Albuterol 2.5 mg 08/14/21 04:28 Albuterol 2.5 Mg/3 Ml Nebu IH Q4HRT PRN Shortness Of Breath Albuterol/Ipratropium 1 ampul 08/14/21 08:00 08/15/21 09:30 Ipratropium/Albuterol Sulfate 3 Ml Ampul.Neb IH Not Given Q6HRT [facility] Dextrose 50 ml 08/14/21 04:30 Dextrose 50% In Water (25gm) 50 Ml Syringe IV Q30MIN PRN Hypoglycemia Protocol Famotidine 10 mg 08/14/21 10:00 08/14/21 22:30 Famotidine 10 Mg Tab PO 10 mg BID JED Administration Heparin Sodium (Porcine) 5,000 unit 08/14/21 06:00 08/15/21 06:28 Heparin 5,000 Unit/1 Ml Vial SUB-Q 5,000 unit Q8HR JED Administration Hydromorphone HCl 0.5 mg 08/14/21 04:28 08/14/21 23:42 Hydromorphone 1 Mg/1 Ml Inj IV 0.5 mg Q3H PRN Administration Pain , Severe (7-10) Sodium Chloride 100 mls @ 999 mls/hr 08/15/21 08:00 Nacl 0.9% IV ANA MARÍA PRN Hypotension Insulin Human Lispro 0 unit 08/14/21 07:30 08/14/21 22:30 Insulin Lispro 100 Unit/Ml SUB-Q Not Given ACHS [facility] Protocol Ondansetron HCl 4 mg 08/14/21 04:28 Ondansetron 4 Mg/2 Ml Inj IV Q8H PRN Nausea And Vomiting Oxycodone/Acetaminophen 1 tab 08/14/21 04:28 Oxycodone /Acetaminophen 5-325mg Tab PO Q6H PRN Pain, Moderate (4-6) Pneumococcal Polyvalent Vaccine 0.5 ml 08/16/21 12:00 Pneumococcal 23 Valent 0.5 Ml Vial IM 08/16/21 12:01 .ONCE ONE Sodium Chloride 10 ml 08/14/21 10:00 08/15/21 03:15 Sodium Chloride 0.9% 10 Ml Flush Syringe IV Not Given BID JED Sodium Chloride 10 ml 08/14/21 04:28 Sodium Chloride 0.9% 10 Ml Flush Syringe IV PRN PRN LINE FLUSH
[2021-08-15 14:12] LABS: Hepatitis C Virus Antibody Non-Reactive (NonReactive)
[2021-08-15 14:35] LABS: Hepatitis B Surface Antigen Nonreactive (Negative)
[2021-08-15 19:58] VITALS: BP 88/29
[2021-08-15] MEDS: FAMOTIDINE 10 MG TAB PO SCH (20:28)
[2021-08-16] MEDS ORDERED: FLU VACC QUAD 2021-22(6MOS UP)/PF 60 MCG/0.5 ML SYRINGE IM ONE (12:00)
[2021-08-16] MEDS ORDERED: PNEUMOCOCCAL 23 Valent 0.5 ML VIAL IM ONE (12:00)
== END 2021-08-15 21:03 | disposition home or self-care (01) ==
LOC: EDBD 20:32 → ED 20:32 → INTOOBSV 08-14 06:43 → 4A 08-14 06:43
PROVIDERS: ADMIT Hospitalist; ATTEND Hospitalist
DX: G93.40 Encephalopathy, unspecified (principal); I12.0 Hypertensive chronic kidney disease with stage 5 chronic kidney disease or end stage renal disease; N18.6 End stage renal disease; E11.22 Type 2 diabetes mellitus with diabetic chronic kidney disease; E87.5 Hyperkalemia; D72.829 Elevated white blood cell count, unspecified; R41.82 Altered mental status, unspecified; N25.81 Secondary hyperparathyroidism of renal origin; Z99.2 Dependence on renal dialysis; Z86.73 Personal history of transient ischemic attack (TIA), and cerebral infarction without residual deficits; Z85.46 Personal history of malignant neoplasm of prostate; Z79.4 Long term (current) use of insulin
CPT/HCPCS: 36415; 70450; 71045; 74176; 80048; 80074; 82140; 82550; 82962; 85007; 85025; 85027; 87040; 93005; 96365; 96366; 96372; 96375; 96376; 99291; G0378; J0885; J1170; J1644; J2060; J2543